=== PATIENT | female | born 1940 | race Caucasian/White ===

== ENCOUNTER 2018-05-19 11:14 | Emergency (ER) | payer OTHER ==
[~2018-05-19] VITALS: Ht 172.7 cm; Wt 88.9 kg
[2018-05-19] MEDS ORDERED: DIVA125T2 PO (13:21)
[2018-05-19] MEDS ORDERED: DABI150C PO (13:21)
[2018-05-19] MEDS ORDERED: FLEC150T PO (13:21)
[2018-05-19] MEDS ORDERED: ALEN70TA5 PO (13:21)
[2018-05-19] MEDS ORDERED: OXYB15TA PO (13:21)
[2018-05-19] MEDS ORDERED: FURO20TA3 PO (13:21)
[2018-05-19] MEDS ORDERED: RIZA10TA34 PO (13:21)
[2018-05-19] MEDS ORDERED: SIMV40TA3 PO (13:21)
[2018-05-19 15:47] VITALS: BP 119/84
== END 2018-05-19 15:50 | disposition home or self-care (01) ==
LOC: ED 13:03
DX: S32.019A Unspecified fracture of first lumbar vertebra, initial encounter for closed fracture (principal); S32.039A Unspecified fracture of third lumbar vertebra, initial encounter for closed fracture; I48.91 Unspecified atrial fibrillation; W18.2XXA Fall in (into) shower or empty bathtub, initial encounter; Y93.E1 Activity, personal bathing and showering; Y92.002 Bathroom of unspecified non-institutional (private) residence as the place of occurrence of the external cause; Y99.8 Other external cause status
CPT/HCPCS: 72110; 72220; 99283

== ENCOUNTER 2019-01-10 22:18 | Emergency (ER) | payer OTHER ==
[~2019-01-10] VITALS: Ht 170.2 cm; Wt 83.0 kg
[2019-01-11 01:13] VITALS: BP 152/78
== END 2019-01-11 02:10 | disposition home or self-care (01) ==
LOC: ED 01-11 00:36
DX: R10.11 Right upper quadrant pain (principal); G89.18 Other acute postprocedural pain; Z90.49 Acquired absence of other specified parts of digestive tract; M25.512 Pain in left shoulder
CPT/HCPCS: 36415; 71045; 74177; 80053; 81001; 83690; 84484; 85025; 87077; 87086; 87186; 93005; 99284; Q9967

== ENCOUNTER 2020-03-12 14:04 | Emergency (ER) | payer OTHER ==
[~2020-03-12] VITALS: Ht 170.2 cm; Wt 85.4 kg
[~2020-03-12 14:04] MED LIST: ALEN70TA6 PO; DABI150C PO; DIVA125T2 PO; FLEC150T PO; FURO20TA3 PO; OXYB15TA18 PO; RIZA10TA34 PO; SIMV40TA20 PO
--- NOTE | 2020-03-12 14:44 | NUR ---
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
[2020-03-12 15:01] VITALS: BP 153/63
--- NOTE | 2020-03-12 15:25 | NUR ---
MD AT BEDSIDE TO UPDATE PT ON POC.
== END 2020-03-12 17:04 | disposition home or self-care (01) ==
LOC: ED 15:11
DX: S52.571A Other intraarticular fracture of lower end of right radius, initial encounter for closed fracture (principal); M54.9 Dorsalgia, unspecified; W19.XXXA Unspecified fall, initial encounter; Y93.89 Activity, other specified; Y92.098 Other place in other non-institutional residence as the place of occurrence of the external cause; Y99.8 Other external cause status
CPT/HCPCS: 29125; 99283